=== PATIENT | female | born 1970 | race Two or more races ===

== ENCOUNTER 2019-03-13 05:49 | Day surgery (SDC) | payer OTHER | END 2019-03-13 13:01 | disposition home or self-care (01) | LOC: AMB-ENDOS 05:49 | DX: D12.8 Benign neoplasm of rectum (principal) ==

== ENCOUNTER 2019-03-28 09:21 | Inpatient (IN) | payer OTHER ==
[~2019-03-28] VITALS: Ht 162.6 cm; Wt 68.5 kg
[2019-04-10] MEDS ORDERED: ULTRACET PO (15:48)
[2019-04-10] MEDS ORDERED: RECTICARE30 GM TOP (15:49)
[2019-04-10] MEDS ORDERED: INTESTINEX680 M1 PO (15:50)
[2019-04-10] MEDS ORDERED: FLAGYL500MG PO (15:50)
== END 2019-04-10 16:58 | disposition home or self-care (01) | DRG 395 ==
LOC: SURG 04-04 09:15 → O/R 04-09 06:24 → SURH 04-09 06:24 → SURG 04-09 09:15 → SURH 04-09 13:06 → SURG 04-09 14:30 → SURH 04-10 16:58
PROVIDERS: ADMIT Surgery
PROC: 3E0T3BZ Introduction of Anesthetic Agent into Peripheral Nerves and Plexi, Percutaneous Approach (ICD-10-PCS; 2019-04-09)
PROC: 0DBP8ZX Excision of Rectum, Via Natural or Artificial Opening Endoscopic, Diagnostic (ICD-10-PCS; principal; 2019-04-09 14:30)
DX: D12.7 Benign neoplasm of rectosigmoid junction (principal)

== ENCOUNTER → 2020-01-15 | Day surgery (SDC) | payer OTHER ==
[~2020-01-15] MED LIST: FLAGYL500MG PO; INTESTINEX680 M1 PO; RECTICARE30 GM TOP; ULTRACET PO
== END | disposition home or self-care (01) ==
LOC: ADM 12-25 13:00 → AMB-ENDOS 12-28 13:00
PROVIDERS: ATTEND Surgery
DX: D12.2 Benign neoplasm of ascending colon (principal); D12.8 Benign neoplasm of rectum; D12.9 Benign neoplasm of anus and anal canal

== ENCOUNTER 2020-02-21 11:00 | Inpatient (IN) | payer OTHER ==
[~2020-02-21] VITALS: Ht 162.6 cm; Wt 68.9 kg
[2020-02-28] MEDS ORDERED: OXYC1TAB9 PO (09:34)
[2020-02-28] MEDS ORDERED: INTESTINEX680 M1 PO (09:34)
[2020-02-28] MEDS ORDERED: HYOSCYAMINE0.125 M1 SL (09:34)
== END 2020-02-28 13:01 | disposition home or self-care (01) | DRG 331 ==
LOC: SURH 02-25 09:00 → O/R 02-25 11:00 → SURH 02-25 11:00 → O/R 02-25 12:30 → SURH 02-25 20:48
PROVIDERS: ADMIT Surgery; ATTEND Surgery
PROC: 07TB4ZZ Resection of Mesenteric Lymphatic, Percutaneous Endoscopic Approach (ICD-10-PCS; 2020-02-25)
PROC: 0D1B4Z4 Bypass Ileum to Cutaneous, Percutaneous Endoscopic Approach (ICD-10-PCS; 2020-02-25)
PROC: 0DBK4ZZ Excision of Ascending Colon, Percutaneous Endoscopic Approach (ICD-10-PCS; 2020-02-25)
PROC: 0DBM4ZZ Excision of Descending Colon, Percutaneous Endoscopic Approach (ICD-10-PCS; 2020-02-25)
PROC: 0DJD8ZZ Inspection of Lower Intestinal Tract, Via Natural or Artificial Opening Endoscopic (ICD-10-PCS; 2020-02-25)
PROC: 0DTG4ZZ Resection of Left Large Intestine, Percutaneous Endoscopic Approach (ICD-10-PCS; principal; 2020-02-25 09:00)
DX: C20 Malignant neoplasm of rectum (principal); R59.0 Localized enlarged lymph nodes; K63.89 Other specified diseases of intestine; D12.2 Benign neoplasm of ascending colon

== ENCOUNTER 2020-04-17 09:11 | Day surgery (SDC) | payer OTHER ==
[~2020-04-17 09:11] MED LIST changes: +HYOSCYAMINE0.125 M1 SL; +OXYC1TAB9 PO
[2020-04-17] MEDS ORDERED: PERCOCET 5-3251 EACH PO (11:46)
== END 2020-04-17 13:15 | disposition home or self-care (01) ==
LOC: CIR.AMB 09:11
PROVIDERS: ATTEND Surgery
DX: C20 Malignant neoplasm of rectum (principal); Z20.828 Contact with and (suspected) exposure to other viral communicable diseases
CPT/HCPCS: 36561; C1751

== ENCOUNTER 2020-07-09 08:41 | Outpatient (CLI) | payer OTHER ==
[~2020-07-09 08:41] MED LIST changes: +PERCOCET 5-3251 EACH PO
== END 2020-07-09 08:50 | disposition home or self-care (01) ==
LOC: RX STUDY 08:41
PROVIDERS: ATTEND Surgery
DX: C20 Malignant neoplasm of rectum (principal); D12.7 Benign neoplasm of rectosigmoid junction; Z93.2 Ileostomy status

== ENCOUNTER 2020-07-24 09:00 | Inpatient (IN) | payer OTHER ==
[~2020-07-24] VITALS: Ht 165.1 cm; Wt 68.0 kg
[2020-08-02] MEDS ORDERED: OXYC1TAB9 PO (14:04)
== END 2020-08-02 17:06 | disposition home or self-care (01) | DRG 331 ==
LOC: O/R 07-31 06:30 → SURH 07-31 06:30
PROVIDERS: ADMIT Surgery; ATTEND Surgery
PROC: 0DBB0ZZ Excision of Ileum, Open Approach (ICD-10-PCS; principal; 2020-07-31 15:15)
DX: Z43.2 Encounter for attention to ileostomy (principal); Z85.048 Personal history of other malignant neoplasm of rectum, rectosigmoid junction, and anus

== ENCOUNTER 2021-04-28 07:43 | Day surgery (SDC) | payer OTHER | END 2021-04-28 11:05 | disposition home or self-care (01) | LOC: CIR.AMB 07:43 | PROVIDERS: ATTEND Surgery | DX: K62.89 Other specified diseases of anus and rectum (principal); Z20.822 Contact with and (suspected) exposure to COVID-19 ==

== ENCOUNTER 2021-06-01 06:08 | Day surgery (SDC) | payer OTHER ==
[2021-06-01] MEDS ORDERED: ULTRACET PO (08:30)
== END 2021-06-01 10:35 | disposition home or self-care (01) ==
LOC: CIR.AMB 06:08
PROVIDERS: ATTEND Surgery
DX: C20 Malignant neoplasm of rectum (principal); Z20.822 Contact with and (suspected) exposure to COVID-19

== ENCOUNTER 2024-07-04 15:05 | Inpatient (IN) | payer OTHER ==
[~2024-07-04] VITALS: Ht 167.6 cm; Wt 46.3 kg
[2024-07-04] MEDS ORDERED: FAMOTIDINE/PF 20 MG in 0.9 % SODIUM CHLORIDE 8 ML IV PUSH STA (16:52)
[2024-07-04] MEDS ORDERED: 0.9 % SODIUM CHLORIDE 1,000 ML IV SCH (17:00)
[2024-07-04 17:29] LABS: HEMATOCRIT 36.7 % (36.0-45.00); HEMOGLOBIN 12.2 g/dL (12.0-15.00); MEAN CORPUSCULAR HEMOGLOBIN 31.9 pg (27.00-32.0); MEAN CORPUSCULAR HGB CONC 33.2 g/dl (32.0-36.0); PLATELET COUNT 136 K/uL (150-450); RED BLOOD COUNT 3.82 M/uL (4.00-6.00); RED CELL DISTRIBUTION WIDTH 14.2 % (11.5-14.5)
[2024-07-04 17:52] LABS: INR 1.03; PARTIAL THROMBOPLASTIN TIME 28.1 SECONDS (22.0-34.0); PROTHROMBIN TIME 11.2 SECONDS (9.0-11.5)
[2024-07-04 18:02] LABS: ALBUMIN 3.5 gm/dL (3.4-5.0); BILIRUBIN TOTAL 2.34 mg/dL (0.3-1.2); CALCIUM 9.5 mg/dL (8.5-10.1); CREATININE SERUM 0.48 mg/dL (0.55-1.02); GFR 134.77; GLOBULINA 3.6 G/DL (2.4-3.5); POTASSIUM 3.9 mEq/L (3.5-5.1); TOTAL PROTEIN 7.1 gm/dL (6.4-8.2)
[2024-07-04] MEDS ORDERED: PIPERACILLIN/TAZOBACTAM SODIUM 3.375 GM in DEXTROSE 5 % IN WATER 100 ML IV SCH (21:38)
[2024-07-04] MEDS ORDERED: LACTOBACILLUS ACIDOPHILUS 1 CAP CAP PO SCH (21:39)
[2024-07-04] MEDS ORDERED: ACETAMINOPHEN 500 MG GEL..CAP PO PRN (21:45)
[2024-07-04] MEDS ORDERED: RINGERS SOLUTION,LACTATED 1,000 ML IV SCH (21:45)
[2024-07-05 00:23] VITALS: BP 118/69; O2SAT 96
[2024-07-05 01:55] VITALS: BP 118/69; O2SAT 96
[2024-07-05 03:11] LABS: C-REACTIVE PROTEIN < 0.29 MG/DL (0.00-0.29); LIPASE 23 U/L (13-75)
[2024-07-05 04:00] VITALS: BP 104/66; O2SAT 99
[2024-07-05 04:48] LABS: URINE APPEARANCE Turbid; URINE BILIRRUBIN Negative (NEGATIVE); URINE BLOOD Trace; URINE COLOR Yellow; URINE GLUCOSE Negative (NEGATIVE); URINE KETONE Negative (NEGATIVE); URINE LEUKOCYTE Large; URINE NITRATE Negative; URINE PROTEIN Negative (NEGATIVE); URINE UROBILINOGEN 0.2 E.U./dl
[2024-07-05 04:49] LABS: URINE EPITHELIAL CELLS 35.8 uL (0.0-38.8); URINE RBC 460.9 uL (0.0-20.8)
[2024-07-05 05:09] LABS: URINE BACTERIA > 9821.5 uL (0.0-1933); URINE CAST 0.45 uL (0.0-1.40); URINE CRYSTALS MANY /HPF
[2024-07-05 09:00] VITALS: BP 127/67; O2SAT 99
[2024-07-05] MEDS ORDERED: FAMOTIDINE/PF 20 MG in 0.9 % SODIUM CHLORIDE 8 ML IV PUSH SCH (09:00)
[2024-07-05] MEDS ORDERED: ENOXAPARIN SODIUM 40 MG/0.4 ML SYRINGE SUBCUTANEO SCH (09:00)
[2024-07-05] MEDS ORDERED: DEXTROSE 50 % IN WATER 0.5 G/ML DISP.SYRIN IV PRN (16:00)
[2024-07-05] MEDS ORDERED: MORPHINE SULFATE 4 MG/ML CARTRIDGE IV PRN (16:00)
[2024-07-05] MEDS ORDERED: 0.9 % SODIUM CHLORIDE 1,000 ML IV SCH (16:00)
[2024-07-05] MEDS ORDERED: OxyCODONE HCL 5 MG TABLET (ROXICODONE) PO PRN (16:00)
[2024-07-05] MEDS ORDERED: ONDANSETRON HCL 2 MG/ML VIAL IV PRN (16:00)
[2024-07-05] MEDS ORDERED: LIDOCAINE HCL 1%/EPINEPHRINE 20ML VIAL IJ ONE (16:30)
[2024-07-05] MEDS ORDERED: BUPIVACAINE HCL 30 ML VIAL IJ ONE (16:30)
[2024-07-05] MEDS ORDERED: MORPHINE SULFATE 4 MG/ML VIAL IV ONE ×2 (16:35→17:05)
[2024-07-05] MEDS ORDERED: HYOSCYAMINE SULFATE 0.125 MG TAB.SUBL SL SCH (17:00)
[2024-07-05] MEDS ORDERED: METRONIDAZOLE/SODIUM CHLORIDE 500 MG/100 ML PIGGYBACK IV SCH (17:00)
[2024-07-05] MEDS ORDERED: GABAPENTIN 300 MG CAPSULE PO SCH (17:00)
[2024-07-05 18:06] LABS: HEMATOCRIT 35.2 % (36.0-45.00); HEMOGLOBIN 11.8 g/dL (12.0-15.00); MEAN CELL VOLUME 95.2 fL (80.00-100.00); MEAN CORPUSCULAR HEMOGLOBIN 31.9 pg (27.00-32.0); MEAN CORPUSCULAR HGB CONC 33.5 g/dl (32.0-36.0); RED CELL DISTRIBUTION WIDTH 14.2 % (11.5-14.5)
[2024-07-05 18:34] LABS: PLATELET COUNT 117 K/uL (150-450)
[2024-07-05 18:58] LABS: ALBUMIN 3.1 gm/dL (3.4-5.0); CREATININE SERUM 0.46 mg/dL (0.55-1.02); GFR 141.56; MAGNESIUM 1.9 mg/dL (1.8-2.4); PHOSPHOROUS 3.5 mg/dL (2.5-4.9); POTASSIUM 4.46 mEq/L (3.5-5.1)
[2024-07-05] MEDS ORDERED: ACETAMINOPHEN 500 MG GEL..CAP PO SCH (20:00)
[2024-07-05] MEDS ORDERED: CELECOXIB 200 MG CAPSULE PO SCH (21:00)
[2024-07-05] MEDS ORDERED: FAMOTIDINE/PF 20 MG/2 ML VIAL IV PUSH SCH (21:00)
[2024-07-06 00:25] VITALS: BP 99/62; O2SAT 100
[2024-07-06 05:47] LABS: HEMATOCRIT 29.1 % (36.0-45.00); MEAN CELL VOLUME 94.7 fL (80.00-100.00); MEAN CORPUSCULAR HEMOGLOBIN 32.4 pg (27.00-32.0); MEAN CORPUSCULAR HGB CONC 34.3 g/dl (32.0-36.0); PLATELET COUNT 99 K/uL (150-450); RED BLOOD COUNT 3.08 M/uL (4.00-6.00); RED CELL DISTRIBUTION WIDTH 13.8 % (11.5-14.5)
[2024-07-06 06:58] LABS: ALBUMIN 2.6 gm/dL (3.4-5.0); CALCIUM 8.2 mg/dL (8.5-10.1); CREATININE SERUM 0.39 mg/dL (0.55-1.02); GFR 171.27; MAGNESIUM 1.8 mg/dL (1.8-2.4); PHOSPHOROUS 3.9 mg/dL (2.5-4.9); POTASSIUM 3.77 mEq/L (3.5-5.1)
[2024-07-06 12:17] LABS: FECAL LEUKOCYTES NEGATIVE (NEGATIVE)
[2024-07-06] MEDS ORDERED: ENOXAPARIN SODIUM 40 MG/0.4 ML SYRINGE SUBCUTANEO SCH (17:00)
[2024-07-06 17:04] VITALS: BP 122/64; O2SAT 98
[2024-07-07 01:41] VITALS: BP 112/58; O2SAT 100
[2024-07-07 08:00] VITALS: BP 121/67; O2SAT 100
[2024-07-07] MEDS ORDERED: ENOXAPARIN SODIUM 40 MG/0.4 ML SYRINGE SUBCUTANEO SCH (09:00)
[2024-07-07] MEDS ORDERED: NEURONTIN300 MG PO (11:41)
[2024-07-07] MEDS ORDERED: INTESTINEX680 M1 PO (11:41)
[2024-07-07] MEDS ORDERED: A/F PAIN RELIE500 MG PO (11:41)
== END 2024-07-07 15:14 | disposition home or self-care (01) | DRG 330 ==
LOC: ER 15:07 → SURH 21:59
PROVIDERS: General Practice; ADMIT Surgery; ATTEND Surgery
PROC: BW21YZZ Computerized Tomography (CT Scan) of Abdomen and Pelvis using Other Contrast (ICD-10-PCS; 2024-07-04)
PROC: 0DBV4ZZ Excision of Mesentery, Percutaneous Endoscopic Approach (ICD-10-PCS; 2024-07-05)
PROC: 0D1L4Z4 Bypass Transverse Colon to Cutaneous, Percutaneous Endoscopic Approach (ICD-10-PCS; principal; 2024-07-05 19:00)
DX: C78.5 Secondary malignant neoplasm of large intestine and rectum (principal); N82.3 Fistula of vagina to large intestine; K52.9 Noninfective gastroenteritis and colitis, unspecified; E86.0 Dehydration

== ENCOUNTER 2024-07-19 11:53 | Emergency (ER) | payer OTHER ==
[~2024-07-19] VITALS: Ht 167.6 cm; Wt 45.4 kg
[~2024-07-19 11:53] MED LIST changes: +A/F PAIN RELIE500 MG PO; +NEURONTIN300 MG PO
[2024-07-19] MEDS ORDERED: 0.9 % SODIUM CHLORIDE 1,000 ML IV STA (12:26)
[2024-07-19 13:53] LABS: HEMATOCRIT 39.6 % (36.0-45.00); HEMOGLOBIN 13.9 g/dL (12.0-15.00); MEAN CELL VOLUME 92.1 fL (80.00-100.00); MEAN CORPUSCULAR HEMOGLOBIN 32.3 pg (27.00-32.0); PLATELET COUNT 254 K/uL (150-450); RED CELL DISTRIBUTION WIDTH 14.4 % (11.5-14.5)
[2024-07-19 14:15] LABS: CREATININE SERUM 0.74 mg/dL (0.55-1.02); GFR 81.78; POTASSIUM 3.09 mEq/L (3.5-5.1)
[2024-07-19 14:59] LABS: URINE APPEARANCE Turbid; URINE BILIRRUBIN Negative (NEGATIVE); URINE BLOOD Negative; URINE COLOR Yellow; URINE GLUCOSE Negative (NEGATIVE); URINE KETONE Negative (NEGATIVE); URINE LEUKOCYTE Large; URINE NITRATE Positive; URINE UROBILINOGEN 0.2 E.U./dl
[2024-07-19 15:01] LABS: URINE CAST 13.28 uL (0.0-1.40); URINE EPITHELIAL CELLS 94.9 uL (0.0-38.8); URINE RBC 35.6 uL (0.0-20.8); URINE WBC 1523.2 uL (0.0-23.2)
[2024-07-19 15:42] LABS: URINE BACTERIA > 9821.5 uL (0.0-1933); URINE PROTEIN 100 (NEGATIVE)
[2024-07-19] MEDS ORDERED: DUI500 PO (16:11)
[2024-07-19] MEDS ORDERED: CEFTRIAXONE SODIUM 1,000 MG VIAL IV STA (16:14)
== END 2024-07-19 16:39 | disposition home or self-care (01) ==
LOC: ER 11:53
PROVIDERS: Emergency Medicine
DX: N39.0 Urinary tract infection, site not specified (principal); B96.4 Proteus (mirabilis) (morganii) as the cause of diseases classified elsewhere; Z20.822 Contact with and (suspected) exposure to COVID-19; Z85.038 Personal history of other malignant neoplasm of large intestine